=== PATIENT | female | born 1970 | race African-American/Black ===

== ENCOUNTER 2018-03-21 11:23 | Emergency (ER) | payer OTHER ==
[~2018-03-21] VITALS: Ht 165.1 cm; Wt 102.1 kg
[2018-03-21 11:45] VITALS: BP 157/101
[2018-03-21] MEDS ORDERED: Methocarbamol 750mg tab ORAL ONE (12:15)
[2018-03-21] MEDS ORDERED: Ketorolac 30mg Inj IM ONE (12:15)
[2018-03-21] MEDS ORDERED: ROBAXIN-750750 MG PO (12:37)
[2018-03-21] MEDS ORDERED: IBUPROFEN600 MG ORAL (12:37)
[2018-03-21] MEDS ORDERED: NORCO 5-325 TA1 EACH ORAL (12:37)
[2018-03-21 12:50] VITALS: BP 157/101
[2018-03-21] MEDS ORDERED: LOSARTAN POTASS25 MG ORAL (12:57)
--- NOTE | 2018-03-21 14:29 | Emergency Room Report ---
History of Present Illness General Chief Complaint: Neck Pain Source: Patient Present Illness HPI 47-year-old female presents ED complaining of neck pain and shoulder pain. States that pain started yesterday when she woke up. Patient notes her neck feels very stiff on the right side. 10 out of 10, throbbing, nonradiating. Denies headache. Denies blurry vision. Denies fevers or chills. No other aggravating relieving factors. Denies any other associated symptoms Allergies: Coded Allergies: Nut Tree (Verified Allergy, Unknown, 03/21/18) Patient History Past Medical History: HTN Past Surgical History: none Pertinent Family History: none Social History: Denies: smoking, alcohol use, drug use Last Menstrual Period: Hysterectomy 2013 Now: No Immunizations: UTD Reviewed Nursing Documentation: PMH: Agreed; PSxH: Agreed Nursing Documentation-PMH Hx Hypertension: Yes Hx Asthma: Yes - Sleep Apnea Review of Systems All Other Systems: negative except mentioned in HPI Physical Exam Vital Signs Date Time Temp Pulse Resp B/P (MAP) Pulse Ox O2 Delivery O2 Flow Rate FiO2 03/21/18 11:35 98.5 103 18 157/101 95 Room Air 98.4 Sp02 EP Interpretation: reviewed, normal General Appearance: no apparent distress, alert, GCS 15, non-toxic, obese Head: normocephalic Eyes: bilateral eye normal inspection, bilateral eye PERRL ENT: normal ENT inspection Neck: full range of motion, no meningismus, no bony tend, supple/symm/no masses , tender lateral Respiratory: chest non-tender, lungs clear, normal breath sounds, speaking full sentences Cardiovascular #1: regular rate, rhythm, no edema Gastrointestinal: normal inspection Rectal: deferred Genitourinary: no CVA tenderness Neurologic: alert, oriented x3, responsive, motor strength/tone normal, sensory intact, speech normal Psychiatric: normal inspection Skin: normal inspection Lymphatic: normal inspection Medical Decision Making Diagnostic Impression: Primary Impression: Neck strain Qualified Codes: S16.1XXA - Strain of muscle, fascia and tendon at neck level , initial encounter ER Course Hospital Course 47-year-old female presents ED complaining of R-sided neck pain status post lifting heavy boxes Differential diagnoses include: neck strain, shoulder strain, dislocation/ fracture Clinical course Patient placed on stretcher. After initial history and physical exam reveals middle-aged female in no acute distress. On exam there is no midline neck tenderness or shoulder tenderness. Full range of motion to the shoulder. There is pain over the R SCM and trapezius. Consistent with a neck strain/ shoulder strain I ordered Toradol/robaxin in ED. Upon reassessment pain is improved Diagnosis - neck strain Stable and discharged to home with prescription for norco, motrin, robaxin. heating pad. Followup with PMD. Return to ED if symptoms recur or worsen Last Vital Signs Date Time Temp Pulse Resp B/P (MAP) Pulse Ox O2 Delivery O2 Flow Rate FiO2 03/21/18 12:50 98.4 86 18 157/101 95 Room Air 98.4 Status: improved Disposition: HOME, SELF-CARE Condition: Stable Scripts Losartan Potassium* (LOSARTAN POTASSIUM*) 25 Mg Tablet 25 MG ORAL DAILY, #30 TAB Prov: Zay Maynard MD 03/21/18 Methocarbamol* (ROBAXIN-750*) 750 Mg Tablet 750 MG PO TID, #21 TAB 0 Refills Prov: Zay Maynard MD 03/21/18 Hydrocodone Bit/Acetaminophen 5-325* (NORCO 5-325*) 1 Each Tablet 1 TAB ORAL Q6H PRN for For Pain, #10 TAB 0 Refills Prov: Zay Maynard MD 03/21/18 Ibuprofen* (MOTRIN*) 600 Mg Tablet 600 MG ORAL Q8H PRN for For Pain, #30 TAB 0 Refills Prov: Zay Maynard MD 03/21/18 Patient Instructions: Cervical Strain and Sprain With [facility] Zay Maynard MD Mar 21, 2018 14:29
== END 2018-03-21 12:59 | disposition home or self-care (01) ==
LOC: EMR 12:19
DX: S16.1XXA Strain of muscle, fascia and tendon at neck level, initial encounter (principal); I10 Essential (primary) hypertension; G47.30 Sleep apnea, unspecified; X58.XXXA Exposure to other specified factors, initial encounter; Y92.9 Unspecified place or not applicable
CPT/HCPCS: 99284; J1885